=== PATIENT | male | born 1965 | race African-American/Black ===

== ENCOUNTER 2020-01-01 08:17 | Emergency (ER) | payer OTHER ==
[~2020-01-01] VITALS: Ht 175.3 cm; Wt 81.8 kg
[2020-01-01] MEDS ORDERED: DIPH,PERTUSS(ACELL),TET VAC/PF 0.5 ML SYRINGE. VAX IM ONE (09:00)
[2020-01-01] MEDS ORDERED: AMOXICILLIN/K CLAV 875/125MG TABLET. PO ONE (09:00)
[2020-01-01 09:03] VITALS: BP 115/75
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
[2020-01-01] MEDS ORDERED: AMOX1TAB61 PO (09:33)
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
== END 2020-01-01 09:45 | disposition home or self-care (01) ==
LOC: ER 08:17
DX: S61.451A Open bite of right hand, initial encounter (principal); Y04.1XXA Assault by human bite, initial encounter; Y93.89 Activity, other specified; Y92.89 Other specified places as the place of occurrence of the external cause; Y99.0 Civilian activity done for income or pay
CPT/HCPCS: 73060; 90471; 90715; 99283